=== PATIENT | female | born 1980 | race Caucasian/White ===

== ENCOUNTER 2023-08-09 01:12 | Emergency (ER) | payer BC ==
[~2023-08-09] VITALS: Ht 167.6 cm; Wt 79.0 kg
[2023-08-09 01:21] VITALS: BP 133/84
[2023-08-09] MEDS ORDERED: KETOROLAC TROMETHAMINE 30 MG/ML SDV IV ONE (01:35)
[2023-08-09 01:47] LABS: BASO% 0.3 % (0-3); EOS% 1.6 % (0-8); HEMATOCRIT 38.7 % (37.0-47.0); HEMOGLOBIN 12.5 g/dl (12.0-16.0); IMMATURE GRANULOCYTES 0.4 % (0.0-5.0); LYMPH% 15.3 % (15-41); MEAN CELL VOLUME 97.7 fL CALC (80.0-100.0); MEAN CORPUSCULAR HGB 31.6 pG CALC (26.0-32.0); MEAN CORPUSCULAR HGB CONC 32.3 g/dL CAL (32.0-36.0); MONO% 8.7 % (2-13); NEUT# 10.39 thou/uL (2.00-7.15); NEUT% 73.7 % (42-76); RED BLOOD COUNT 3.96 mill/uL (4.20-5.60); RED CELL DISTRI WIDTH 12.9 % (11.5-15.5)
[2023-08-09 01:48] LABS: URINE BLOOD DIPSTICK Moderate (NEGATIVE); URINE COLOR Yellow; URINE GLUCOSE - DIPSTICK 100 mg/dL (NEGATIVE); URINE KETONE Trace mg/dL (NEGATIVE); URINE LEUK ESTERASE Trace (NEGATIVE); URINE NITRITE - DIPSTICK Positive (Negative); URINE PH 5.5 (4.5-8.0); URINE PROTEIN - DIPSTICK 100 mg/dL (NEG-TRACE)
[2023-08-09] MEDS ORDERED: INSULIN REGULAR (HUMAN) 100 UNIT/ML INJ IV ONE (02:00)
[2023-08-09 02:05] LABS: URINE BACTERIA MODERATE hpf; URINE MUCUS FEW hpf (NONE-FEW); URINE SQUAMOUS EPITHELIAL CELL FEW EPI/hpf (0-FEW); URINE WBC 20-50 WBC/hpf (0-5)
[2023-08-09 02:14] LABS: CREATININE 0.8 mg/dL (0.5-1.0); POTASSIUM 3.6 mmol/l (3.5-5.1)
[2023-08-09] MEDS ORDERED: CIPROFLOXACN500 MG PO (04:12)
[2023-08-09] MEDS ORDERED: TORADOL PO (04:12)
[2023-08-09 04:37] VITALS: BP 130/87
== END 2023-08-09 04:37 | disposition home or self-care (01) | DRG 694 ==
LOC: ED 01:12
PROVIDERS: Family Medicine
DX: N20.1 Calculus of ureter (principal); R16.0 Hepatomegaly, not elsewhere classified; Z87.440 Personal history of urinary (tract) infections